=== PATIENT | male | born 1970 | race Caucasian/White ===

== ENCOUNTER 2018-01-21 15:14 | Inpatient (IN) | payer MEDICAID ==
[2018-01-21] MEDS ORDERED: chlordiazePOXIDE 25 MG CAP PO ONE ×3 (15:46→17:10)
--- NOTE | 2018-01-21 15:47 | EDPHY ---
H & P Time Seen by Provider: 01/21/18 15:22 HPI/ROS: CHIEF COMPLAINT: Possible seizure HISTORY OF PRESENT ILLNESS: Drinks every day, last drink yesterday. Brought in because friend thought he had a seizure. Patient thinks he did not. Did not bite his tongue was not incontinent. Right now he has chronic right shoulder pain otherwise no complaints. He is little bit tremulous. REVIEW OF SYSTEMS: Eye: no change in vision ENT: no sore throat Cardiac: no chest pain or syncope Pulmonary: no cough or SOB Abdomen: no vomiting, diarrhea, abdominal pain, some nausea Musculoskeletal: HPI Skin: no rash Neuro: no headache Constitutional: no fever : no urinary symptoms A comprehensive 10 point review of systems is otherwise negative aside from elements mentioned in the history of present illness. PAST MEDICAL HISTORY: Alcoholism and chronic right shoulder pain Social history: No alcohol since yesterday General Appearance: Alert and conversant, cooperative. Eyes: No scleral icterus. ENT, Mouth: Normal mucous membranes. No tongue laceration or abrasion. Respiratory: Normal respiratory effort, breath sounds equal, lungs are clear to auscultation. Cardiovascular: Regular rate and rhythm. Gastrointestinal: Abdomen is soft and non tender. Neurological: Alert, face symmetric, normal motor and sensory in extremities. Mildly tremulous, speech fluent. Skin: Warm and dry, no rashes. Musculoskeletal: No peripheral edema. Psychiatric: Not agitated. Emergency Department course/MDM: Patient refusing IV. Tachycardic. EKG and Librium 50 mg orally, breathalyzer. Breathalyzer zero. 1527: Still tachycardic at 1:40 a.m. After 2nd dose of Librium, still refusing IV. 1842: Additional 2 mg IV Ativan still tremulous. Patient will be admitted to hospitalist service for alcohol withdrawal, received 3 doses of oral Librium and 3 doses of 2 mg IV Ativan and still is tachycardic and shaky. 2030: Precedex started in ED. Smoking Status: Current every day smoker Constitutional: Initial Vital Signs Temperature (C) 37.3 C 01/21/18 15:26 Heart Rate 132 H 01/21/18 15:26 Respiratory Rate 18 01/21/18 15:26 Blood Pressure 147/107 H 01/21/18 15:26 O2 Sat (%) 96 01/21/18 15:26 O2 Delivery Mode Room Air Allergies/Adverse Reactions: haloperidol Allergy (Verified 01/21/18 19:55) Medical Decision Making - Diagnostics EKG Interpretation: 12-lead EKG interpreted by me; official reading is in computer system. My interpretation is sinus tachycardia rate 138 with long QT and APC. Differential Diagnosis: Differential for shaking tachycardia considered including but not limited to alcohol withdrawal, thyroid problem, anemia, other metabolic. Consult/Admit Bed Type: [place] [id number] Critical Care Time: Critical care time spent by me, Dr. Alvarez, exclusively with the care of this patient was 40 minutes, exclusive of PA or STRUCTURAL STEEL WORKER time and exclusive of separate procedures. The organ system at risk was neurologic and I ordered multiple doses of IV Ativan, oral Librium, serial exam, IV fluids and admission hospitalist to stabilize the patient and prevent worsening of the patient's condition. - Data Points Laboratory Results: Laboratory Results 01/21/18 18:33 01/21/18 18:33 01/21/18 01/21/18 01/21/18 18:33 18:33 17:50 WBC 8.46 10^3/uL 10^3/uL (3.80-9.50) RBC 3.81 10^6/uL L 10^6/uL (4.40-6.38) Hgb 8.9 g/dL L g/dL (13.7-17.5) Hct 27.6 % L % (40.0-51.0) MCV 72.5 fL L fL (81.5-99.8) MCH 23.5 pg L pg (27.9-34.1) MCHC 32.5 g/dL g/dL (32.4-36.7) RDW 21.6 % H % (11.5-15.2) Plt Count 70 10^3/uL L 10^3/uL (150-400) MPV TNP Neut % (Auto) 66.7 % % (39.3-74.2) Lymph % (Auto) 22.1 % % (15.0-45.0) [place] % (Auto) 10.0 % % (4.5-13.0) Eos % (Auto) 0.2 % L % (0.6-7.6) Baso % (Auto) 0.6 % % (0.3-1.7) Nucleat RBC Rel Count 0.0 % % (0.0-0.2) Absolute Neuts (auto) 5.64 10^3/uL 10^3/uL (1.70-6.50) Absolute Lymphs (auto) 1.87 10^3/uL 10^3/uL (1.00-3.00) Absolute Monos (auto) 0.85 10^3/uL H 10^3/uL (0.30-0.80) Absolute Eos (auto) 0.02 10^3/uL L 10^3/uL (0.03-0.40) Absolute Basos (auto) 0.05 10^3/uL 10^3/uL (0.02-0.10) Absolute Nucleated RBC 0.00 10^3/uL 10^3/uL (0-0.01) Immature Gran % 0.4 % % (0.0-1.1) Immature Gran # 0.03 10^3/uL 10^3/uL (0.00-0.10) Sodium 133 mEq/L L mEq/L REJ (135-145) Potassium 4.5 mEq/L mEq/L Not Reported (3.3-5.0) Chloride 96 mEq/L L mEq/L Not Reported (97-110) Carbon Dioxide 23 mEq/l mEq/l Not Reported (22-31) Anion Gap 14 mEq/L mEq/L Not Reported (8-16) BUN 9 mg/dL mg/dL Not Reported (7-23) Creatinine 0.5 mg/dL L mg/dL Not Reported (0.7-1.3) Estimated GFR > 60 Not Reported Glucose 87 mg/dL mg/dL Not Reported (70-100) Calcium 8.4 mg/dL L mg/dL Not Reported (8.5-10.4) Specimen Hemolysis 103 01/21/18 17:50 WBC REJ RBC Not Reported Hgb Not Reported Hct Not Reported MCV Not Reported MCH Not Reported MCHC Not Reported RDW Not Reported Plt Count Not Reported MPV Not Reported Neut % (Auto) Not Reported Lymph % (Auto) Not Reported [place] % (Auto) Not Reported Eos % (Auto) Not Reported Baso % (Auto) Not Reported Nucleat RBC Rel Count Not Reported Absolute Neuts (auto) Not Reported Absolute Lymphs (auto) Not Reported Absolute Monos (auto) Not Reported Absolute Eos (auto) Not Reported Absolute Basos (auto) Not Reported Absolute Nucleated RBC Not Reported Immature Gran % Not Reported Immature Gran # Not Reported Sodium Potassium Chloride Carbon Dioxide Anion Gap BUN Creatinine Estimated GFR Glucose Calcium Specimen Hemolysis Medications Given: Dexmedetomidine HCl 400 mcg/ (Sodium Chloride) 104 mls @ 0 mls/hr IV CONT JOHNATHAN; Titrate PRN Reason: Protocol Stop: 07/20/18 19:59 Last Admin: 01/22/18 04:05 Dose: 104 mls Famotidine/Sodium Chloride (Pepcid 20 Mg (Premix)) 50 mls @ 200 mls/hr IV Q12HRS JOHNATHAN Stop: 07/20/18 20:59 Last Admin: 01/21/18 21:09 Dose: 50 mls Sodium Chloride (Ns) 1,000 mls @ 100 mls/hr IV CONT JOHNATHAN Stop: 07/20/18 19:59 Last Admin: 01/21/18 23:27 Dose: 1,000 mls Thiamine HCl 500 mg/ Sodium (Chloride) 105 mls @ 210 mls/hr IV Q24H [facility] Stop: 07/20/18 22:44 Last Admin: 01/21/18 23:27 Dose: 105 mls Lorazepam (Ativan Injection) 0 mg IVP Q1H PRN; Protocol PRN Reason: Alcohol Withdrawal w/IV access Stop: 07/20/18 19:55 Last Admin: 01/22/18 00:47 Dose: 2 mg Lorazepam (Ativan) 2 mg PO Q6HRS JOHNATHAN Stop: 01/26/18 00:00 Last Admin: 01/22/18 00:48 Dose: Not Given Discontinued Medications Chlordiazepoxide HCl (Librium) 50 mg PO EDNOW ONE Stop: 01/21/18 15:47 Last Admin: 01/21/18 15:50 Dose: 50 mg Chlordiazepoxide HCl (Librium) 25 mg PO EDNOW ONE Stop: 01/21/18 17:11 Last Admin: 01/21/18 17:32 Dose: Not Given Chlordiazepoxide HCl (Librium) 50 mg PO EDNOW ONE Stop: 01/21/18 17:11 Last Admin: 01/21/18 17:18 Dose: 50 mg Sodium Chloride (Ns) 1,000 mls @ 0 mls/hr IV EDNOW ONE; Wide Open PRN Reason: Protocol Stop: 01/21/18 15:55 Last Admin: 01/21/18 16:40 Dose: Not Given Sodium Chloride (Ns) 1,000 mls @ 0 mls/hr IV EDNOW ONE; Wide Open PRN Reason: Protocol Stop: 01/21/18 18:14 Last Admin: 01/21/18 18:21 Dose: 1,000 mls Lorazepam (Ativan Injection) 2 mg IVP EDNOW ONE Stop: 01/21/18 17:39 Last Admin: 01/21/18 18:21 Dose: 2 mg Lorazepam (Ativan Injection) 2 mg IVP EDNOW ONE Stop: 01/21/18 18:43 Last Admin: 01/21/18 18:46 Dose: 2 mg Lorazepam (Ativan Injection) 2 mg IVP EDNOW ONE Stop: 01/21/18 19:18 Last Admin: 01/21/18 19:48 Dose: 2 mg Departure - Departure Disposition: [facility] Acute Clinical Impression: Alcohol withdrawal Qualifiers: Complication of substance-induced condition: with unspecified complication Qualified Code(s): F10.239 - Alcohol dependence with withdrawal, unspecified Condition: Serious
[2018-01-21] MEDS ORDERED: NS 1,000 ML IV ONE ×2 (15:54→18:13)
--- NOTE | 2018-01-21 15:59 | CPEKG ---
Test Reason : OPEN Blood Pressure : / mmHG Vent. Rate : 138 BPM Atrial Rate : 139 BPM P-R Int : 126 ms QRS Dur : 135 ms QT Int : 355 ms P-R-T Axes : 101 066 014 degrees QTc Int : 538 ms Sinus tachycardia Atrial premature complex Prolonged QT interval Confirmed by Aureliano Alvarez ([id number]) on 01/21/2018 3:58:55 PM Referred By: Confirmed By:Aureliano Alvarez
[2018-01-21] MEDS ORDERED: LORazepam 2 MG/ML INJ IVP ONE ×3 (17:38→19:17)
[2018-01-21] MEDS ORDERED: ONDANSETRON DISINTEGRATING 4 MG TAB PO PRN (19:56)
[2018-01-21] MEDS ORDERED: ACETAMINOPHEN 325 MG TAB PO PRN (19:56)
[2018-01-21] MEDS ORDERED: FLUMAZENIL 0.5 MG/5 ML MDV IVP PRN (19:56)
[2018-01-21] MEDS ORDERED: PROMETHAZINE HCL 25 MG/ML INJ IVP PRN (19:56)
[2018-01-21] MEDS ORDERED: ONDANSETRON 4 MG/2 ML VIAL IVP PRN (19:56)
[2018-01-21 20:07] LABS: PLATELET COUNT 70 10^3/uL (150-400)
[2018-01-21] MEDS: DEXMEDETOMIDINE HCL 400 MCG in NS 100 ML IV SCH (20:38)
--- NOTE | 2018-01-21 20:40 | GHP ---
DATE OF ADMISSION: 01/21/2018 The patient is a 47-year-old gentleman with significant alcoholism, multiple admissions to [facility], who presents with alcohol withdrawal. Friend says he had a seizure, he disagrees. When I speak to the patient, he is sort of mumbling. He received 150 mg of Librium, 6 mg Ativan, wi th a pulse remaining in the high in the 130s and he is tremulous. Per the ER doctor, he did not bite his tongue and he was not incontinent, but then according to the aides who cleaned him up, he had so me dried stool around his anus and he had some urinary incontinence. He is tremulous but otherwise without complaints, but he is pretty confused when I see him. He has not had alcohol since yesterday. REVIEW OF SYSTEMS: Complete 10-point review of systems conducted, negative except as noted in the HP I. PAST MEDICAL HISTORY: 1. Alcoholism with recurrent admissions and presentations to [facility]. Since 2017, he betancur s had 17 ER presentations and many before that. 2. Alcoholic hepatitis. 3. Alcohol withdrawal seizures. 4. Hypertension. 5. Depression. 6. Tobacco use. 7. GERD. 8. Cervical stenosis. 9. History of rotator cuff surgery. 10. Upper GI bleed secondary to alcoholic gastritis. ALLERGIES: To Haldol. HOME MEDICATIONS: None. SOCIAL HISTORY: Uses tobacco. Homeless, alcoholic. FAMILY HISTORY: Reviewed and unremarkable. PHYSICAL EXAMINATION: VITAL SIGNS: Temp 37.3, blood pressure 147/107, pulse 132, breathing 18 times a minute, 96% on room air. GENERAL: Confused, encephalopathic. Sclerae anicteric. Oropharynx neto ar. Mucous membranes are moist. NECK: Supple without lymphadenopathy or JVD. LUNGS: Clear to aus cultation bilaterally. HEART: S1, S2. ABDOMEN: Soft, nontender, nondistended. LOWER EXTREMITIES: Without edema. Calves are nontender. SKIN: Without rash. He has some irritation in his gluteal cleft and some red spots on his heel, but no emerson infections. NEUROLOGIC: The patient is in deliri um tremens. The patient has profound body odor. LABORATORY DATA: Sodium 133, potassium 4.5, chloride 96, bicarb 23, BUN 9, creatinine 0.5, glucose 8 .3. CBC is pending. EKG interpreted by me shows sinus tach at 138 with normal axis and intervals. No ST or T-wave changes. I discussed the case with Dr. Aureliano Alvarez. ASSESSMENT AND PLAN: A 47-year-old gentle with delirium tremens. 1. Delirium tremens. The patient has received pretty aggressive therapy in the emergency department with a high dose of Librium and Ativan. We will admit to the ICU with 2 mg q.6 of p.o. Ativan, foll owed by a Precedex drip. He has required this in the past. 2. History of gastrointestinal bleed. We will put him on prophylaxis. 3. Question seizures. The patient does not have a metabolic acidosis. I do not believe that he sei zed. 4. Skin irritation. We will follow. I think this is hygiene related. DISPOSITION: ICU. 40 minutes critical care. /[id number]/MODL
[2018-01-21] MEDS: FAMOTIDINE 20 MG/NACL 50 ML IV SCH (21:09)
[2018-01-21] MEDS: NS 1,000 ML IV SCH (23:27)
[2018-01-21] MEDS: THIAMINE HCL 500 MG in NS 100 ML IV SCH (23:27)
[2018-01-22] MEDS: LORazepam 2 MG/ML INJ IVP PRN ×5 (00:47→23:27)
[2018-01-22] MEDS: LORazepam 1 MG TAB PO SCH ×3 (00:48→12:33)
[2018-01-22] MEDS: DEXMEDETOMIDINE HCL 400 MCG in NS 100 ML IV SCH ×3 (03:42→07:34)
[2018-01-22 06:02] LABS: INR 1.69 (0.83-1.16)
[2018-01-22 06:14] LABS: PLATELET COUNT 48 10^3/uL (150-400)
[2018-01-22] MEDS: FAMOTIDINE 20 MG/NACL 50 ML IV SCH ×2 (08:00→21:44)
[2018-01-22] MEDS ORDERED: ENOXAPARIN 40 MG/0.4 ML SYR SC SCH (09:00)
[2018-01-22] MEDS: NS 1,000 ML IV SCH ×2 (09:18→22:00)
[2018-01-22] MEDS ORDERED: DEXMEDETOMIDINE HCL 1,000 MCG in NS 250 ML IV SCH (11:00)
--- NOTE | 2018-01-22 11:42 | HOSPPROG ---
Hospitalist Progress Note Assessment/Plan: Angel Horton is a 47 yo male with PMHx of alcoholism with multiple admissions to [facility] who presented with alcohol withdrawal. Alcohol Withdrawal/Delirium Tremens - Friend states that he has seizure at home, but patient disagrees - S/p dose of Librium and Ativan in ED, remained tachycardic - Admitted to ICU on Precedex gtt - Will wean Precedex gtt and continue Ativan 2 mg q6 hours - Discuss alcohol cessation with patient Hyponatremia - Na 133 on admission - Likely decreased in setting of decreased PO intake - Improved to 138 this AM - Continue to monitor Na Hx of GI Bleed - Placed on Famotidine BID - Continue to monitor CBC Diet: Regular Ppx: SCDs Code: FULL Dispo: Pending clinical coursr Subjective: Patient sleeping upon exam on Precedex infusion Objective: Vital Signs Temp Pulse Resp BP Pulse Ox 35.9 C L 74 14 144/95 H 96 01/22/18 07:58 01/22/18 11:00 01/22/18 11:00 01/22/18 11:00 01/22/18 11:00 Laboratory Results 01/22/18 05:15 01/22/18 05:15 01/21/18 01/22/18 01/23/18 05:59 05:59 05:59 Intake Total 1055 Output Total 370 800 Balance 685 -800 PT 20.0 SEC (12.0-15.0) H 01/22/18 05:15 INR 1.69 (0.83-1.16) H 01/22/18 05:15 - Physical Exam Constitutional: no apparent distress Eyes: PERRL Ears, Nose, Mouth, Throat: ears appear normal Cardiovascular: regular rate and rhythym Respiratory: no respiratory distress, clear to auscultation Gastrointestinal: soft, non-tender abdomen Genitourinary: no bladder tenderness Skin: warm Musculoskeletal: no joint effusions Neurologic: AAOx3 Psychiatric: interacting appropriately ICD10 Worksheet Patient Problems: Problems Problem Status Onset Alcohol withdrawal Acute
[2018-01-22] MEDS: LORazepam 2 MG/ML INJ IV SCH ×3 (12:35→23:48)
--- NOTE | 2018-01-22 14:39 | PDMN ---
Medical Necessity Medical necessity: Pt meets IP criteria per MD & MCG M-590 ; est los >2 mn for eval/tx of delirium tremens r/t alcohol withdrawal; requiring close ICU monitoring & Precedex drip; hx significant alcoholism w/recurrent hospital admissions, alcoholic hepatitis, alcohol withdrawal seizures, HTN & GI bleed; per H&P & order 01/21/18
--- NOTE | 2018-01-22 15:05 | ASMTCASEMG ---
Living Arrangements What is your living Answers: Alone arrangement? Who do you live with? Type Of Residence What kind of residence do Answers: Homeless you live in? Type of Residence Facility Name Notes: Patient is homeless. Discharge Plan Comments Coordination Status Comments Notes: Patient is a 47yo single male with significant hx of alcoholism, multiple admissions to [facility] who presents to ED with ETOH withdrawal. Patient was admitted for delirium tremens, hx of gastrointestinal bleed, seizures, and skin irritation. OT/PT/ROOF FITTER have been ordered. Patient is homeless which will make d/c plan more complex. D/C plan TBD. CM will follow. Date Signed: 01/22/2018 03:02 PM Electronically Signed By:Deneen Hernandez LCSW
--- NOTE | 2018-01-22 19:01 | GCON ---
PULMONARY CRITICAL CARE CONSULTATION. DATE OF CONSULTATION: 01/22/2018 REASON FOR CONSULTATION: Alcohol withdrawal. HISTORY: The patient is a 47-year-old chronic alcoholic. He apparently has been drinking heavily. He was brought in by friends, who stated that he had a seizure. He had no witnessed seizure in the e mergency department, but appeared to be actively withdrawing, and was tremulous. He has a history of multiple admissions and emergency room visits secondary to alcohol. There is a history of previous DTs and alcohol withdrawal seizures, alcoholic hepatitis, ongoing tobacco abuse, gastroesophageal ref lux disease, and GI bleeding. There is history of hypertension, possibly related to alcohol withdraw al as well. SURGICAL HISTORY: Rotator cuff. DRUG ALLERGIES: Haldol. SOCIAL HISTORY: Homeless, alcoholic, smokes cigarettes, drugs currently unknown. FAMILY HISTORY: Noncontributory. REVIEW OF SYSTEMS: Unobtainable. PHYSICAL EXAMINATION: GENERAL: Reveals an unkept individual, who is somnolent. He arouses weakly. He is on Precedex and scheduled Ativan. VITAL SIGNS: Blood pressure is 135/95, heart rate 75 with s inus rhythm on the monitor. Respiratory rate is 14. Room air saturations are 96%. HEENT: Unremark able for lymphadenopathy or thyromegaly. There is no obvious jugular venous distention. There is no evidence of head trauma. Pupils appear equal. Mucous membranes are somewhat dry. CHEST: Clear bi laterally. Breath sounds are diminished at the posterior bases. No rhonchi or rales are appreciated . HEART: Regular in rate and rhythm. There is soft systolic murmur, no gallop. ABDOMEN: Soft, no ntender. Bowel sounds are present. Liver edge is appreciated, no splenomegaly. EXTREMITIES: Unrem arkable for edema. SKIN: Unremarkable for rash. There are no significant lesions. NEUROLOGIC: Ex amination is difficult to assess secondary to his sedation. He moves all extremities equally. DATABASE: White blood cell count is 4500, hematocrit 27. Platelets are 48,000. PT on admission was 20 with an INR of 1.7. Sodium is 138, potassium 3.7, CO2 20, BUN 9 with a creatinine of 0.5. Total bilirubin is 3.5, AST 138, ALT 50. Albumin is 3.0. ASSESSMENT: 1. Alcohol withdrawal, severe. He is on Precedex and scheduled Ativan. He is on the CIWA protocol. He has received thiamine. This is 1 of many admissions to the emergency department or inpatient re lated to alcohol withdrawal and the complications of chronic and sustained alcohol abuse. 2. Chronic alcoholism. It would appear that he has no intention of quitting alcohol. Once active w ithdrawal is over, we can discuss this further with him. Now that he is on Precedex and going throug h withdrawal, it is going to be difficult to change this course. 3. Pancytopenia, secondary to alcohol. 4. Alcoholic hepatitis with a component of likely cirrhosis. PT and INR are elevated on admission a s is bilirubin and transaminases. 5. Prophylaxis: Famotidine is being given. Anticoagulation is currently contraindicated secondary to his thrombocytopenia. PLAN AND RECOMMENDATIONS: Patient will be kept in the intensive care unit on the CIWA protocol. Int ravenous fluids will be given. Precedex will be used initially and weaned as tolerated. Scheduled A tivan will be continued in light of his history of alcohol withdrawal seizures. Laboratory will be f ollowed. Further plans and recommendations will be made based on his progress over the next 12 to 24 hours. /[id number]/MODL
[2018-01-22] MEDS: THIAMINE HCL 500 MG in NS 100 ML IV SCH (23:28)
[2018-01-23] MEDS: LORazepam 2 MG/ML INJ IVP PRN ×6 (00:45→21:59)
[2018-01-23] MEDS: LORazepam 2 MG/ML INJ IV SCH (05:40)
[2018-01-23] MEDS: FAMOTIDINE 20 MG TAB PO SCH ×2 (08:57→19:24)
[2018-01-23] MEDS ORDERED: ALBUTEROL 60 PUFFS/8 GM MDI IH PRN (10:44)
[2018-01-23] MEDS ORDERED: NICOTINE 21 MG/24 HR PATCH TD ONE (10:44)
--- NOTE | 2018-01-23 10:47 | PDINTPN ---
Machine Tool Designer Progress Note Assessment/Plan: Assessment: Alcohol withdrawal. Doing well. Off Precedex, on Ativan. Remains on CIWA. Possible seizure secondary to the above. Prior to admission. None since. Chronic alcohol abuse: Indicates today that he may want to go through rehab to stop drinking. Has been unsuccessful with this in the past. History of tobacco abuse: Will add a nicotine patch, p.r.n. Albuterol Metabolic: Labs pending from today GI: On famotidine DVT: On SCDs. Ambulating. Plan: Continue observation in the intensive care unit throughout the morning. If he does well, remains calm with low CIWA scores, does not need Precedex restarted that he could possibly transfer to a medical-surgical bed later today. Await electrolytes: Replacement as indicated. Add nicotine patch in p.r.n. Albuterol inhaler. 25 min of critical care time spent directly with the patient. Discussed with nursing, hospitalist, ICU multi disciplinary team. Subjective: Off Precedex. On oral scheduled Ativan. Doing well. Calm, low CIWA Objective: Vital Signs Temp Pulse Resp BP Pulse Ox 37.5 C 76 14 102/65 95 01/22/18 20:00 01/23/18 10:00 01/23/18 08:00 01/23/18 10:00 01/23/18 09:00 Laboratory Results 01/22/18 05:15 01/22/18 05:15 01/22/18 01/23/18 01/24/18 05:59 05:59 05:59 Intake Total 1055 3767 Output Total 370 1725 850 Balance 685 2042 -850 PT 20.0 SEC (12.0-15.0) H 01/22/18 05:15 INR 1.69 (0.83-1.16) H 01/22/18 05:15 Today's laboratory is pending Physical Exam - Physical Exam General Appearance: alert, no apparent distress EENT: PERRL/EOMI, other (On room air) Neck: normal inspection Respiratory: lungs clear (Anteriorly), decreased breath sounds (At bases), No rhonchi Cardiac/Chest: regular rate, rhythm, No gallop Abdomen: normal bowel sounds, non-tender, soft Male Genitalia: other (No Mann catheter) Skin: normal color, warm/dry Extremities: No pedal edema Neuro/Psych: no motor/sensory deficits, No cognition abnormalities ICD10 Worksheet Patient Problems: Problems Problem Status Onset Alcohol withdrawal Acute
[2018-01-23] MEDS: LORazepam 1 MG TAB PO SCH ×3 (11:00→23:01)
--- NOTE | 2018-01-23 11:09 | HOSPPROG ---
Hospitalist Progress Note Assessment/Plan: Angel Horton is a 47 yo male with PMHx of alcoholism with multiple admissions to [facility] who presented with alcohol withdrawal. Alcohol Withdrawal/Delirium Tremens - S/p dose of Librium and Ativan in ED, remained tachycardic - Admitted to ICU on Precedex gtt - Currently weaned off of Precedex gtt - Continue Ativan 2 mg q6 hours - Discuss alcohol cessation with patient Hyponatremia - Na 133 on admission - Likely decreased in setting of decreased PO intake - Improved to 138 on 01/22 - Continue to monitor Na Hx of GI Bleed - Placed on Famotidine BID - Continue to monitor CBC Diet: Regular Ppx: SCDs Code: FULL Dispo: Pending clinical course, likely transfer to Med/Surg later this afternoon Subjective: Patient reports no complaints this morning Objective: Vital Signs Temp Pulse Resp BP Pulse Ox 37.5 C 76 14 102/65 95 01/22/18 20:00 01/23/18 10:00 01/23/18 08:00 01/23/18 10:00 01/23/18 09:00 Laboratory Results 01/22/18 05:15 01/22/18 05:15 01/22/18 01/23/18 01/24/18 05:59 05:59 05:59 Intake Total 1055 3767 Output Total 370 1725 850 Balance 685 2042 -850 PT 20.0 SEC (12.0-15.0) H 01/22/18 05:15 INR 1.69 (0.83-1.16) H 01/22/18 05:15 - Physical Exam Constitutional: no apparent distress, unkempt Eyes: PERRL Ears, Nose, Mouth, Throat: dry mucous membranes Cardiovascular: regular rate and rhythym Respiratory: no respiratory distress, clear to auscultation Gastrointestinal: normoactive bowel sounds Genitourinary: no bladder tenderness Skin: warm Musculoskeletal: full muscle strength Neurologic: AAOx3 Psychiatric: flat affect ICD10 Worksheet Patient Problems: Problems Problem Status Onset Alcohol withdrawal Acute
[2018-01-23] MEDS: OXYCODONE/APAP 5/325 TAB PO PRN (20:37)
[2018-01-23] MEDS: THIAMINE HCL 500 MG in NS 100 ML IV SCH (21:59)
[2018-01-23] MEDS ORDERED: ZOLPIDEM TARTRATE 5 MG TAB PO ONE (22:49)
[2018-01-24] MEDS: LORazepam 2 MG/ML INJ IVP PRN ×7 (00:25→20:49)
[2018-01-24] MEDS: CALCIUM CARBONATE 500 MG CHEWABLE TAB PO PRN ×2 (01:57→20:55)
[2018-01-24] MEDS: OXYCODONE/APAP 5/325 TAB PO PRN ×3 (01:57→09:21)
[2018-01-24 06:06] LABS: PLATELET COUNT 67 10^3/uL (150-400)
[2018-01-24 06:11] LABS: INR 1.6 (0.83-1.16); PROTIME(PATIENT) 19.2 SEC (12.0-15.0)
[2018-01-24] MEDS: LORazepam 1 MG TAB PO SCH ×4 (06:49→23:33)
[2018-01-24] MEDS ORDERED: PROTOCOL MAGNESIUM 1 DOSE IV PRN (08:00)
[2018-01-24] MEDS ORDERED: PROTOCOL POTASSIUM 1 DOSE MISC PRN (08:00)
[2018-01-24] MEDS ORDERED: POTASSIUM CL 10 MEQ TAB PO ONE ×2 (08:06→17:41)
[2018-01-24] MEDS ORDERED: MAGNESIUM SULF 2 GM/WATER 50 ML IV ONE (08:07)
[2018-01-24] MEDS: FAMOTIDINE 20 MG TAB PO SCH ×2 (08:27→20:49)
[2018-01-24] MEDS ORDERED: PNEUMOCOCCAL 0.5ML VACCINE VIAL IM ONE (08:42)
--- NOTE | 2018-01-24 10:57 | HOSPPROG ---
Hospitalist Progress Note Assessment/Plan: Angel Horton is a 47 yo male with PMHx of alcoholism with multiple admissions to [facility] who presented with alcohol withdrawal. Alcohol Withdrawal/Delirium Tremens - S/p dose of Librium and Ativan in ED - Admitted to ICU on Precedex gtt, weaned off of on 01/23 - Continue CIWA protocol - Discussed alcohol cessation with patient this morning who reports he would be interested in detox Hyponatremia - Na 133 on admission - Likely decreased in setting of decreased PO intake - Improved to 138 on 01/22 - Continue to monitor Na Hx of GI Bleed - Placed on Famotidine BID - Continue to monitor CBC Diet: Regular Ppx: SCDs Code: FULL Dispo: Pending clinical course, likely d/c tomorrow home vs. alcohol detox program Subjective: Patient reports R shoulder pain this morning Objective: Vital Signs Temp Pulse Resp BP Pulse Ox 36.7 C 103 H 20 128/89 H 92 01/24/18 08:00 01/24/18 08:00 01/24/18 08:00 01/24/18 08:00 01/24/18 08:00 Laboratory Results 01/24/18 05:52 01/24/18 05:52 01/23/18 01/24/18 01/25/18 05:59 05:59 05:59 Intake Total 3767 2090 Output Total 1725 1700 Balance 2042 390 PT 19.2 SEC (12.0-15.0) H 01/24/18 05:52 INR 1.60 (0.83-1.16) H 01/24/18 05:52 - Physical Exam Constitutional: chronically ill appearing, unkempt Eyes: PERRL Ears, Nose, Mouth, Throat: poor dentition Cardiovascular: regular rate and rhythym Respiratory: clear to auscultation Gastrointestinal: soft, non-tender abdomen Genitourinary: no bladder tenderness Skin: warm Musculoskeletal: full muscle strength, pain with ROM (R shoulder) Neurologic: AAOx3 Psychiatric: poor insight, poor judgement ICD10 Worksheet Patient Problems: Problems Problem Status Onset Alcohol withdrawal Acute
[2018-01-24] MEDS: IBUPROFEN 600 MG TAB PO PRN ×2 (18:20→23:33)
[2018-01-24] MEDS: THIAMINE HCL 500 MG in NS 100 ML IV SCH (23:30)
[2018-01-25] MEDS: LORazepam 1 MG TAB PO SCH (06:09)
[2018-01-25 08:30] VITALS: BP 155/99
[2018-01-25] MEDS: FAMOTIDINE 20 MG TAB PO SCH (09:25)
[2018-01-25] MEDS: IBUPROFEN 600 MG TAB PO PRN (09:46)
[2018-01-25] MEDS ORDERED: LORazepam 1 MG TAB PO PRN (09:53)
--- NOTE | 2018-01-25 12:03 | ASDISCHSUM ---
Discharge Information Plan Status:Home with No Needs Medically Cleared to Leave:01/25/2018 Discharge Date:01/25/2018 11:20 AM CM D/C Disposition:Home, Routine, Self-Care ADT D/C Disposition:Home, Routine, Self-Care Projected Discharge Date:01/25/2018 11:00 AM Transportation at D/C:Bus Ticket Discharge Delay Reason: Follow-Up Date:01/25/2018 11:00 AM Discharge Slot:1 - 8:01 am - 12:00 noon Final Diagnosis:ETOH W/D, Sz Placement Information Patient Contact Information Contact Name:ELA Relationship: Address: Home Phone: Work Phone: City: Alternate Phone: State/Zip Code: Email: Financial Information Financial Class:Medicaid Primary Plan Desc:[employer] [place] Primary Plan Number:[id number] Secondary Plan Desc: Secondary Plan Number: Assessment Information LACE LACE Length of stay for Answers: 4-6 days current admission Acuity / Level of Answers: Yes Care: Did the patient have an inpatient admission? Comorbidities - select Answers: Other Notes: ETOH w/d all that apply # of Emergency department Answers: 1-2 visits in the last 6 months Social determinants Answers: History of substance abuse (ETOH, street drugs, prescription drugs, etc.) Homelessness (street, [facility]) Lack of community resources and/or lack of social support (no pcp, lives alone, transportation, ryan d) Score: 19 Date Signed: 01/25/2018 12:02 PM Electronically Signed By:Peyton Paulino LCSW [facility] Initial CM Assessment Living Arrangements What is your living Answers: Alone arrangement? Who do you live with? Type Of Residence What kind of residence do Answers: Homeless you live in? Type of Residence Facility Name Notes: Patient is homeless. Discharge Plan Comments Coordination Status Comments Notes: Patient is a 47yo single male with significant hx of alcoholism, multiple admissions to [facility] who presents to ED with ETOH withdrawal. Patient was admitted for delirium tremens, hx of gastrointestinal bleed, seizures, and skin irritation. OT/PT/MUSIC HISTORIAN have been ordered. Patient is homeless which will make d/c plan more complex. D/C plan TBD. CM will follow. Date Signed: 01/22/2018 03:02 PM Electronically Signed By:Deneen Hernandez LCSW Case Management Discharge Plan Note Case Management Discharge Discharge Order Complete? Answers: Yes Patient to Obtain Answers: Independently Medications Transportation Arranged Answers: Bus Tokens Transport will Pick (Date 01/25/2018 11:00 AM & Time) Discharge Comments Notes: Patient has been discharged. He has been given clothes and bus token. Swathi. Date Signed: 01/25/2018 12:01 PM Electronically Signed By:Peyton Paulino LCSW Intervention Information
--- NOTE | 2018-01-25 12:08 | PDDCSUM ---
Discharge Summary Discharge Summary: Date of Admission: 01/21/2018 Date of Discharge: 01/25/2018 Consults: N/A Procedures: N/A Followup: PCP Hospital Course Problem List: Alcohol Withdrawal/Delirium Tremens - S/p dose of Librium and Ativan in ED - Admitted to ICU on Precedex gtt, weaned off of on 01/23 - Continued on CIWA protocol, switched from scheduled to PRN - Discussed alcohol cessation with patient who is refusing rehab/detox at this time Hyponatremia - Na 133 on admission - Likely decreased in setting of decreased PO intake - Improved to 138 on 01/22 - Continue to monitor Na Hx of GI Bleed - Placed on Famotidine BID - Continue to monitor CBC Prior to discharge, patient was refusing discharge. Security was called to escort patient out of the hospital. Time spent on discharge was >35 minutes with >50% of time spent on patient education counseling
== END 2018-01-25 11:20 | disposition home or self-care (01) | DRG 775 ==
LOC: EDBD 15:14 → F2N 22:29
PROVIDERS: ADMIT Internal Medicine; ATTEND Internal Medicine
DX: F10.231 Alcohol dependence with withdrawal delirium (principal); K70.10 Alcoholic hepatitis without ascites; K70.30 Alcoholic cirrhosis of liver without ascites; E87.1 Hypo-osmolality and hyponatremia; E86.9 Volume depletion, unspecified; G40.89 Other seizures; Z23 Encounter for immunization; I10 Essential (primary) hypertension; F32.9 Major depressive disorder, single episode, unspecified; K21.9 Gastro-esophageal reflux disease without esophagitis; Z59.0 Homelessness; Z72.0 Tobacco use
CPT/HCPCS: 92523-GN; 92610-GN; 96374; 97161-GP; 97166-GO; G0008; J2060; J3411; J3475